=== PATIENT | male | born 1980 | race Caucasian/White ===

== ENCOUNTER 2024-06-24 14:15 | Outpatient (OUT) | payer BC, SELFPAY ==
[2024-06-24 15:04] LABS: INR 1.08; Partial Thromboplastin Time 30.7 sec (22.3-36.2); Prothrombin Time 11.4 sec (9.0-11.6)
== END 2024-06-24 14:16 | disposition home or self-care (01) ==
LOC: PST 14:21
PROVIDERS: Visit Provider Urology
DX: Z01.812 Encounter for preprocedural laboratory examination (principal); N20.0 Calculus of kidney; R31.9 Hematuria, unspecified
CPT/HCPCS: 85610; 85730

== ENCOUNTER 2024-07-15 07:19 | Day surgery (SDC) | payer BC, SELFPAY ==
[2024-06-24 14:43] VITALS: BP 140/85; PULSE 93; TEMP 36.3; O2SAT 96; BMI 44.6
[2024-07-15] VITALS (9 sets, daily range): BP systolic 131–170; BP diastolic 75–96; PULSE 69–84; TEMP 36.3–36.8; O2SAT 92–97; BMI 44.9
--- OUTSIDE RECORDS SUMMARY | 2024-07-15 07:22 | XMS_ITS | CCD ---
Author Organization [facility] Care Team Providers Care Post Anesthesia Room Nurse Name Role Phone Greg Farrell Unavailable NO FAMILY, PHYSICIAN Primary Care Provider Unava ilable Umu Sethi APRN Emergency Provider [phone] Joe Jordan MD Attending Provider CALIXTO ECHEVERRIA Primary Care Physician Joe JORDAN Attending Unavailable Joe JORDAN Attending Unavailable Umu Sethi Admitting Unavailable NO FAMILY, PHYSICIAN Primary Care Unavailable Umu Sethi Attending Unavailable Joe Jordan Attending Unavailable Joe Jordan Admitting Unavailable NO FAMILY, PHYSICIAN Primary Care Unavailable Allergies Allergy Classification Reported Allergen(s) Allergy Type Date of Onset Reaction(s) Facility (1 source) No Known Medication Allergies; Translations: [No Known Medication Allergies] Propensity to adverse reactions (disorder) [facility] Repository Medications Current Medications Medication Drug Class(es) Dates Sig (Normalized) Sig (Original) Acetaminophen / HYDROcodone (3 sources) Opioid Agonist Start: 06-21-2024 [place] 5/325 Tab See Instructions, Refill(s) 0, Oral q6hr Start Date: 06/21/24 Status: Ordered Start: 06-14-2024 take 1 tablet by pool th every four to six hours as needed for pain Hydrocodone-Acetaminophen 5-325 mg table t Active 1 TAB PO EVERY 4-6 HOURS as needed for pain 10 3 June 14, 2024 amoxicillin 875 mg / clavulanate 125 mg oral tablet (1 source) Penicillin-class Antibacterial Start: 05-20-2022 take 1 tablet by mouth every twelve hours Amoxicillin-Pot Clavulanate 875-125 MG 1 tablet Orally every 12 hrs for 10 day(s) May, Active bifidobacterium infantis 4 mg oral capsule (4 sources) Start: 06-21-2024 take 4 mg by mouth once daily Align 4 mg, Oral, Daily, Refills(s) 0 Start Date: 06/21/24 Status: Ordered Start: 06-14-2024 take 1 capsule by mo [facility] once daily Bifidobacterium Infantis (Align) 4 mg capsule Active 4 MG PO Daily June 14, 2024 12:00am Zyrtec (4 sources) Histamine-1 Receptor Antagonist Start: 06-21-2024 Zyrtec Daily, Refill s(s) 0 Start Date: 06/21/24 Status: Ordered Start: 06-14-2024 take 1 tablet by pool once daily Cetirizine 5 mg tablet Active 5 MG PO Daily June 14, 2024 12:00am Flonase (4 sources) Corticosteroid Start: 06-21-2024 Flonase mcg, D aily, Refill(s) 0 Start Date: 06/21/24 Status: Ordered Start: 06-14-2024 take 1 spray(s) nasa l route once daily Fluticasone Propionate 50 mcg/actuation spray,suspension Active 1 SPRAY INTRANASAL Daily June 14, 2024 12:00am administer into each nostril ondansetron 4 mg disintegrating oral tablet (2 sources) Serotonin-3 Receptor Antagonist Start: 06-14-2024 take 1 tablet by mouth every eight hours Ondansetron 4 mg tablet,disintegrating Active 4 MG PO Every 8 hours 12 June 14, 2024 12:00am predniSONE 20 mg oral tablet (1 source) Start: 05-20-2022 take 1 tablet by mouth every twelve hours predniSONE 20 MG 1 tablet Orally twice a day for 5 days May, Active tamsulosin hydrochloride 0.4 mg oral capsule (4 sources) alpha-Adrenergic Addis Start: 06-21-2024 take 1 capsule by mouth once daily tamsulosin 0.4 mg Cap 0.4 mg = 1 cap(s), Oral, Daily, # 30 cap(s), Refills(s) 1, Pharmacy: [id number], 198, cm, 06/21/24 9:15:00 EST, Height/Length Dosing, 172.5, kg, 06/21/24 9:15:00 EST, Weight Dosing Start Date: 06/21/24 Status: Ordered Start: 06-21-2024 take 4 mg by mouth once daily tamsulosin 4 mg, Oral, Daily, Refills(s) 0 Start Date: 06/21/24 Status: Ordered Start: 06-14-2024 take 1 capsule by [facility] once daily Tamsulosin (Flomax) 0.4 mg capsule Active 0.4 MG PO Daily June 14, 2024 12:00am Completed/Discontinued Medications Medication Drug Class(es) Dates Sig (Normalized) Sig (Original) azithromycin 250 mg oral tablet (3 sources) Macrolide Antimicrobial Start: 08-29-2020 End: 06-14-2024 Azithromycin (Zithromax Z-Will) 250 mg tablet Discontinued 250 MG PO as directed on dose pack August 28, 2020 11:00pm June 14, 2024 1:15pm take 2 tablets (500 mg) today (day 1), then 1 tablet (250 mg) for 4 days (days 2-5) benzonatate 100 mg oral capsule (3 sources) Non-narcotic Antitussive Start: 08-29-2020 End: 06-14-2024 take 2 capsules by mouth three times daily as needed for cough Benzonatate (Tessalon Perles) 100 mg capsule Discontinued 200 MG PO Three times daily as needed for cough August 28, 2020 11:00pm June 14, 2024 1:16pm dexamethasone 6 mg oral tablet (3 sources) Corticosteroid Start: 08-29-2020 End: 06-14-2024 take 1 tablet by mouth once daily Dexamethasone 6 mg tablet Discontinued 6 MG PO Daily August 28, 2020 11:00pm June 14, 2024 1:16pm Problems Problem Classification Problem Date Documented Date Episodic/Chronic Abdominal pain (1 source) Unspecified abdominal pain; Translations: [Unspecified abdominal pain] Onset: 06-14-2024 Episodic Asthma (1 source) Asthma 06-21-2024 Chronic Calculus of urinary tract (5 sources) Obstruction of pelviureteric junction; Translations: [Calculus of ureter] Onset: 06-19-2024 06-14-2024 Episodic Esophageal disorders (1 source) Gastroesophageal reflux disease without esophagitis; Translations: [Gastro-esophageal reflux disease without esophagitis] Chronic Genitourinary symptoms and ill-defined conditions (3 sources) Hematuria, unspecified; Translations: [Hematuria, unspecified] 06-14-2024 Episodic Other upper respiratory infections (1 source) Acute pansinusitis, unspecified Episodic Pneumonia (except that caused by tuberculosis or sexually transmitted disease) (3 sources) Pneumonia; Translations: [Pneumonia, unspecified organism] 05-21-2023 Episodic Comment on above: Problem List clean-u p per request of Phys. EHR Cmte Skin and subcutaneous tissue infections (2 sources) Cellulitis of lower limb; Translations: [Cellulitis of left lower limb] 06-21-2024 Episodic Spondylosis; intervertebral disc disorders; other back problems (3 sources) Backache; Translations: [Dorsalgia, unspecified] 06-14-2024 Episodic Viral infection (1 source) Disease caused by 2019-nCoV 06-21-2024 Results Test Name Value Interpretation Reference Range Facility Ambulatory Visit Summaryon 0 06-21-2024 Ambulatory Visit Summary Ambulatory Visi t Summary FAUSTO LAUREANO :1980 Visit Date:06/21/2024 Ambulatory Visit Instructions Your Diagnosis Kidney stone Your Care Team Attending Physician - Joe JORDAN MD Primary Care Physician - CALIXTO ECHEVERRIA DO This Is Your Medications List tamsulosin (tamsulosin 0.4 mg Cap) Contact prescribing physician if questions or concerns acetaminophen-hydroc odone ([place] 5/325 Tab) bifidobacterium infantis (Align) cetirizine (Zyrtec) fluticasone nasal (Flonase) tamsulosin Procedures Performed Extraction of wisdom tooth (10/06/2016). Discharge Vitals Temperature (Temporal Artery) 37 ???C Heart Rate (Peripheral) 80 Respiratory Rate 18 Blood Pressure 133/84 Height 198 cm Height 78 in Weight 172.5 kg Weight 380.297 lb BMI 44 What to do next You Need to Schedule the Following Appointments Follow Up with MARTINE BYRNES, Joe Harman, URL When: Where: [facility] [address] , [place] [address] [phone] Medications What How Much When Why Instructions New tamsulosin (tamsulosin 0.4 mg Cap) 1 Capsules By Mouth Every day Kidney stone Refills: 1 Pickup at [facility] Unchanged acetaminophen-hydroc odone ([place] 5/ 325 Tab) See instructions Oral q6hr Contact prescribing physician if questions or concerns Unchanged bifidobacterium infantis (Align) 4 Milligram By Mouth Every day Contact prescribing physician if questions or concerns Unchanged cetirizine (Zyrtec) Every day Contact prescribing physician if questions or concerns Unchanged fluticasone nasal (Flonase) Every day Contact prescribing physician if questions or concerns Unchanged tamsulosin 4 Milligram By Mouth Every day Contact prescribing physician if questions or concerns Pharmacy Information [id number]: [id number] [place], [place] [phone] Medications and Immunizations Administered Given SARS-CoV-2 (COVID-19) mRNA-1273 vaccine, Allergies No Known Medication Allergies Problems Ongoing - Any problem that you are currently receiving treatment for. Asthma Cellulitis COVID-19 Kidney stone Patient Survey You may receive a survey via text or e-mail asking about your office visit. Please share your experience with us by completing your survey. We appreciate your feedback and thank you for choosing us for your care. Education Materials Laser Therapy for Kidney Stones Laser therapy for kidney stones is a procedure to break up rock-like masses that form inside the kidneys (kidney stones). It is done using a device that beams a strong light (laser) on the kidney stones. This breaks the stones up into small pieces. These small pieces may leave your body when you pee (urinate) or may be taken out during the procedure. You may need laser therapy if you have kidney stones that are painful or that are stopping you from being able to pee. Tell a health care provider about: ??? Any allergies you have. ??? All medicines you are taking, including vitamins, herbs, eye drops, creams, and hyli-lys-jlujbni medicines. ??? Any problems you or family members have had with anesthesia. ??? Any bleeding problems you have. ??? Any surgeries you have had. ??? Any medical conditions you have. ??? Whether you are or may be . What are the risks? Your health care provider will talk with you about risks. These may include: ??? Infection. ??? Bleeding. ??? Allergic reactions to medicines. ??? Damage to: ? The part of your body that drains pee (urine) from the bladder (urethra). ? The bladder. ? The tube that connects the bladder to the kidneys (ureter). ??? Urinary tract infection (UTI). ??? Urethral stricture. This is when the urethra is narrowed by scarring. ??? Trouble peeing. ??? Blockage of the kidney. This may be caused by a piece of kidney stone. What happens before the procedure? When to stop eating and drinking Follow instructions from your provider about what you may eat and drink. These may include: ??? 8 hours before the procedure ? Stop eating most foods. Do not eat meat, fried foods, or fatty foods. ? Eat only light foods, such as toast or crackers. ? All liquids are okay except energy drinks and alcohol. ??? 6 hours before the procedure ? Stop eating. ? Drink only clear liquids, such as water, clear fruit juice, black coffee, plain tea, and sports drinks. ? Do not drink energy drinks or alcohol. ??? 2 hours before the procedure ? Stop drinking all liquids. ? You may be allowed to take medicines with small sips of water. ??? If you do not follow your provider's instructions, your procedure may be delayed or canceled. Medicines ??? Ask your provider about: ? Changing or stopping your regular medicines. These include any diabetes medicines or blood thinners you take. ? Taking medicines such as (more content not included)... Normal [facility] Urology Office/Clinic Noteon 06-21-2024 Urology Office/Clinic Note Urology Office/Clinic Note Chief Complaint kidney stone HPI Staff 43yr old male pt here for ER f/u. Pt [place] [facility] [place]24 for left flank pain. CT showed 4mm obstructing calculus left UPJ. Given Flomax to take daily. KUB order faxed to [facility] 06/15/24 Dysuria: denies Incomplete bladder emptying: denies Hematuria: denies Frequency: denies Urgency: denies Nocturia: 2x Stream: denies straining or intermittency Leaking: denies Post void dripping: yes Wearing pads/ Depends: denies Urge incontinence: denies Stress incontinence: denies Incontinence without Sensory Awareness: denies Abdominal pain: denies any current pain Flank pain: denies any current pain Sexual complaints: denies History of Present Illness Tests reviewed: reviewed UA, ER notes & labs & imaging, KUB I have reviewed the previous health record information and history for this patient from Dr. Jordan. I have reviewed and verified the staff HPI to be accurate for this encounter. Review of Systems PHQ Score Initial Depression Screen Score: 0 SCORE ROS - Provider Constitutional: denies weight loss, denies hot flashes. Eyes: denies eye problems. Gastrointestinal: denies nausea, denies vomiting. Cardiovascular: denies chest pain or angina. Integumentary: no dryness Musculoskeletal: denies musculoskeletal symptoms. ENMT: denies otolaryngeal symptoms. Respiratory: no shortness of breath. Heme/Lymph: denies easy bleeding tendency, denies easy bruising tendency. Psychiatric: no confusion, no anxiety. Genitourinary: See HPI. Physical Exam Vitals & Measurements T: 37 ???C(Temporal Artery) HR: 80(Peripheral) RR: 18 BP: 133/84 HT: 78 in HT: 198 cm WT: 172.5 kg WT: 380.297 lb BMI: 44 General Appearance: alert, no distress, well nourished, well developed male. Assessment/Plan Fausto is a 43 yo male new pt here for f/u to ER visit due to left UPJ stone. IPSS 2. JACQUELIN 5. 1. Kidney stone (N20.0: Calculus of kidney) [facility] ER visit 06/14/24 due to left flank pain and hematuria. Given Toradol, Zofran, [place], and Flomax. BUN 19, Cr 1.36, eGFR >60. CT AP wo con 06/14/24 [facility] - 4mm obstructing L UPJ stone. No other stones noted. KUB 06/19/24 FR - 6mm L kidney stone grossly unchanged in position. No R calculus. First stone episode. UA today shows trace-intact blood. Denies gross hematuria. Has not had any pain since ER visit where he had N&V with flank pain. Reviewed imaging results. Advised pt stone may be ball-valving. Currently appears to be in the kidney per recent x-ray and given pt not in pain. Discussed management options including continued surveillance with imaging in 6 to 12 months or expectant management vs intervention including extracorporeal shockwave lithotripsy vs ureteroscopy with laser lithotripsy/stone basket extraction possible stent. Risks/benefits of each were discussed. Pt is not interested in ureteroscopy. Prefers to have stone treated via ESWL. -Cont Tamsulosin qd. Refills sent to [facility]. -Strain urine, call if stone passes -Take Tylenol or ibuprofen as needed for pain -Will schedule Left ESWL. The procedure risks, benefits, details and treatment alternatives have been discussed with the patient. These include blood in the urine, infection, bleeding around the kidney, kidney bruising, inability to break up the stone, need for blood transfusion, blockage from stone fragments, and need for additional procedures, among others. Full informed consent has been obtained. Will order General anesthesia. Follow-up With When Contact Information MARTINE BYRNES, Joe Harman, L [facility] [address], [place] [address] [phone] Additional Instructions: sched L ESWL Patient Education Laser Therapy for Kidney Stones Kidney Stones, [id number] IQian, personally scribed for Dr. Jordan on 06/21/2024 09:57:18. . Documentation recorded by the scribe, Qian Fallon, accurately reflects the services(s) I performed and decisions made by me. Authenticated by Dr. Jordan on 06/21/2024 10:00:06. Problem List/Past Medical History Ongoing Asthma Cellulitis COVID-19 Kidney stone Historical No qualifying data Procedure/Surgical History Extraction of wisdom tooth (10/06/2016). Medications Align, 4 mg, Oral, Daily Flonase, Daily [place] 5/325 Tab, See Instructions, Not taking: has not had a need to take it tamsulosin, 4 mg, Oral, Daily Zyrtec, Daily Allergies No Known Medication Allergies Social History Alcohol Current. Liquor. 1-2 times per week., 06/16/2024 Substance Abuse Never., 06/16/2024 Tobacco Never (less than 100 in lifetime) Tobacco Use:. Household tobacco concerns: No., 06/21/2024 Family History Arthritis: Mother. Breast cancer: Mother. Diabetes mellitus type 2: Father. Kidney stone: Mother and Brother. Immunizations Vaccine Date Status SARS-CoV-2 (COVID-19) mRNA-1273 vaccine 04/30/2022 G (more content not included)... Normal [facility] Comment on above: Result Comment: Elec tronically Signed By: MARTINE BYRNES, Joe Harman\.br\Date and Time Signed: 06/21/24 10:00 EST\.br\Electronically Co-Signed By: Qian Fallon\.br\Date and Time Co-Signed: 06/21/24 09:57 EST X-ray reportOrdered By: Eldon Gross on 06-19-2024 Study report [facility] [address] [address] XRay Report Signed Patient: Fausto Laureano MR#: [id number] : 1980 Acct:[id number] Age/Sex: 43 / M ADM Date: 5 Loc: XD Room: Type: REG CLI Attending Dr: Joe Jordan MD Copies to: Joe Jordan MD~ Ordering Provider: Joe Jordan MD Date of Service: 06/19/24 XR/XR KUB: N20.0 KUB: CLINICAL INFORMATION: Follow-up left-sided kidney stone COMPARISON: CT abdomen and pelvis 06/14/2024. FINDINGS: Left-sided kidney stone is grossly unchanged in position measuring 6 mm on today's study. No right-sided calculus. No ureteral carpus. No bowel obstruction or free air. XR/XR KUB IMPRESSION: LEFT NEPHROLITHIASIS GROSSLY UNCHANGED IN POSITION WHEN COMPARED TO THE PRIOR STUDY. Impression dictated by: Ryan Gross Jr., D.O.06/19/2024 9:29 AM Dictation Location: [facility] Transcribed By: [facility] 06/19/24928 Dictated By: Ryan Gross Jr, DO 06/19/24 0928 Signed By: 06/19/24 0929 [facility] XR KUBon 06-19-2024 XR KUB [address] [address] XRay Report Signed Patient: Fausto Laureano MR#: [id number] 43 : 1980 Acct:[id number] Age/Sex: 43 / M ADM Date: 06/19/24 Loc: XD Room: Type: REG CLI Attending Dr: Joe Jordan MD Copies to: Joe Jordan MD Ordering Provider: Joe Jordan MD Date of Service: 06/19/24 XR/XR KUB: N20.0 KUB: CLINICAL INFORMATION: Follow-up left-sided kidney stone COMPARISON: CT abdomen and pelvis 06/14/2024. FINDINGS: Left-sided kidney stone is grossly unchanged in position measuring 6 mm on today's study. No right-sided calculus. No ureteral carpus. No bowel obstruction or free air. XR/XR KUB IMPRESSION: LEFT NEPHROLITHIASIS GROSSLY UNCHANGED IN POSITION WHEN COMPARED TO THE PRIOR STUDY. Impression dictated by: Ryan Gross Jr., D.O.06/19/2024 9:29 AM Dictation Location: [facility] Transcribed By: [facility] 06/19/24928 Dictated By: Ryan Gross Jr, DO 06/19/24927 Signed By: 06/19/24928 Normal [facility] Alanine aminotransferase [En zymatic activity/volume] in Serum or PlasmaOrdered By: Umu Sethi on 06-14-2024 ALT [Catalytic activity/Vol] Alanine aminotransferase [Enzymatic activity/volume] in Serum or Plasma 7-52 [facility] Albumin [Mass/volume] in Ser um or Plasma by Bromocresol green (BCG) dye binding methoOrdered By: Umu Sethi on 06-14-2024 Albumin BCG dye [Mass/Vol] Albumin [Mass/volume] in Serum or Plasma by Bromocresol green (BCG) dye binding metho 3.5-5.7 [facility] Alkaline phosphatase [Enzyma tic activity/volume] in Serum or PlasmaOrdered By: Umu Sethi on 06-14-2024 ALP [Catalytic activity/Vol] Alkaline phosphatase [Enzymatic activity/volume] in Serum or Plasma 34-104 [facility] Aspartate aminotransferase [ Enzymatic activity/volume] in Serum or PlasmaOrdered By: Umu Sethi on 06-14-2024 AST [Catalytic activity/Vol] Aspartate aminotransferase [Enzymatic activity/volume] in Serum or Plasma 13-39 [facility] Basophils Auto (Bld) [#/Vol] Ordered By: Umu Sethi on 06-14-2024 Basophils (Bld) [#/Vol] Automated basoph il count 0.0-0.2 [facility] Basophils/100 WBC Auto (Bld) Ordered By: Umu Sethi on 06-14-2024 Basophils/100 WBC (Bld) Automated basophil % . [facility] Bilirubin.total [Mass/volume ] in Serum or PlasmaOrdered By: Umu Sethi on 06-14-2024 Bilirubin [Mass/Vol] Bilirubin.total [Mass/volume] in Serum or Plasma 0.3-1.[address] [facility] CT abdomen pelvis wo conon 0 06-14-2024 CT abdomen pelvis wo con [facility] [place] [address] [place] [address] CT Scan Report Signed Patient: Fausto Laureano MR#: [id number] 43 : 1980 Acct:[id number] Age/Sex: 43 / M ADM Date: 06/14/24 Loc: ER Room: Type: PRE ER Attending Dr: Copies to: Umu Sethi APRN Ordering Provider: Umu Sethi APRN Date of Service: 06/14/24 CT/CT abdomen pelvis wo con: flank pain/hematuria CT ABDOMEN AND PELVIS WITHOUT INTRAVENOUS CONTRAST: CLINICAL HISTORY: Left low back pain with hematuria COMPARISON: None TECHNIQUE: Spiral images were obtained through the abdomen and pelvis without intravenous contrast. This CT exam was performed using one or more following dose reduction techniques: Automated exposure control, adjustment of the mA and/or kV according to patient size, or use of iterative reconstruction technique. FINDINGS: Lung Bases: [Mild bibasilar atelectasis.] Organs:Suboptimal evaluation due to lack of IV contrast. Liver gallbladder spleen pancreas and adrenal glands appear unremarkable. Kidneys demonstrate a 4 mm obstructing calculus left UPJ. Aorta appears normal in caliber.[ GI: Stomach is grossly unremarkable. Small bowel appears nondilated. Appendix is normal. No acute colonic abnormality is seen.[ Pelvis:[Urinary bladder and prostate gland appear unremarkable.] Peritoneum/Retroperi toneum:No free air or free fluid or lymphadenopathy.[ Abd wall/Bones:Abdominal wall demonstrates no acute findings. Osseous structures demonstrate degenerative change.[ CT/CT abdomen pelvis wo con IMPRESSION: 4 mm obstructing calculus left UPJ. Impression dictated by: Ryan Gross Jr., D.OWillis06/14/2024 3:18 PM Dictation Location: [facility] Transcribed By: MIKE 06/14/24 1518 Dictated By: yRan Gross Jr, DO 06/14/241514 Signed By: 06/14/241517 Normal [facility] Calcium [Mass/volume] in Ser um or PlasmaOrdered By: Umu Setih on 06-14-2024 Calcium [Mass/Vol] Calcium [Mass/volume] in Serum or Plasma 8.6-10.3 [facility] Carbon dioxide, total [Moles /volume] in Serum or PlasmaOrdered By: Umu Sethi on 06-14-2024 CO2 [Moles/Vol] Carbon dioxide, total [Moles/volume] in Serum or Plasma 21.0-31.0 [facility] Chloride [Moles/volume] in S evan or PlasmaOrdered By: Umu Sethi on 06-14-2024 Chloride [Moles/Vol] Chloride [Moles/volume] in Serum or Plasma 98-107 [facility] Complete Blood Count Auto Di ffon 06-14-2024 Basophils (Bld) [#/Vol] 0.1 10*3/uL Normal 0.0-0.2 [facility] Comment on above: Result Comment: PERF ORMED BY: [place] [address] PATHOLOGIST RETAIL LOSS PREVENTION SPECIALIST MOJGAN HOSKINS M.D. Performed By: #### C BC, CMP #### [facility] [address] [place] [address] [place] Basophils/100 WBC (Bld) 0.8 % Normal . [facility] Comment on above: Performed By: #### C BC, CMP #### [facility] [address] Eosinophils (Bld) [#/Vol] 0.2 10*3/uL Normal 0.0-0.45 [facility] Comment on above: Performed By: #### C BC, CMP #### [address] Eosinophils/100 WBC (Bld) 1.6 % Normal . [facility] Comment on above: Performed By: #### C BC, CMP #### [address] Erythrocyte distribution width (RBC) [Ratio] 12.8 % Normal 12.0-14.8 [facility] Comment on above: Performed By: #### C BC, CMP #### [address] Hematocrit (Bld) [Volume fraction] 43.2 % Normal 38.8-50.0 [facility] Comment on above: Performed By: #### C BC, CMP #### [address] Hemoglobin (Bld) [Mass/Vol] 14.9 g/dL Normal 13.0-17.0 [facility] Comment on above: Performed By: #### C BC, CMP #### [address] Lymphocytes (Bld) [#/Vol] 1.8 10*3/uL Normal 1.00-4.8 [facility] Comment on above: Performed By: #### C BC, CMP #### [address] Lymphocytes/100 WBC (Bld) 16.4 % Normal . [facility] Comment on above: Performed By: #### C BC, CMP #### [address] [facility] (RBC) [Entitic mass] 30.8 pg Normal 27.5-35.2 [facility] Comment on above: Performed By: #### C BC, CMP #### [address] MCV (RBC) [Entitic vol] 89.4 fL Normal 83.5-101 [facility] Comment on above: Performed By: #### C BC, CMP #### [address] Mean Corpuscular HGB Conc 34.4 g/dL Normal 32.5-35.6 [facility] Comment on above: Performed By: #### C BC, CMP #### [address] Monocytes (Bld) [#/Vol] 0.7 10*3/uL Normal 0.0-0.8 [facility] Comment on above: Performed By: #### C BC, CMP #### [place] [address] [place] Monocytes/100 WBC (Bld) 18.17 % Normal 0.00-20.00 [facility] Comment on above: Performed By: #### C BC, CMP #### [address] Monocytes/100 WBC (Bld) 5.8 % Normal . [facility] Comment on above: Performed By: #### C BC, CMP #### [place] [address] [place] Neutrophils (Bld) [#/Vol] 8.4 10*3/uL High 1.8-7.7 [facility] Comment on above: Performed By: #### C BC, CMP #### [address] Neutrophils/100 WBC (Bld) 75.4 % Normal . [facility] Comment on above: Performed By: #### C BC, CMP #### [address] NRBC% 0.0 /100{WBC} Normal 0-0.5 [facility] Comment on above: Performed By: #### C BC, CMP #### [address] Platelet mean volume (Bld) [Entitic vol] 7.8 fL Normal 6.6-10.1 [facility] Comment on above: Performed By: #### C BC, CMP #### [place] [id number] [place] Platelets (Bld) [#/Vol] 287 10*3/uL Normal 150-450 [facility] Comment on above: Performed By: #### C BC, CMP #### [address] RBC (Bld) [#/Vol] 4.84 10*6/uL Normal 3.90-5.60 [facility] Comment on above: Performed By: #### C BC, CMP #### [address] WBC (Bld) [#/Vol] 11.2 10*3/uL High 4.1-10.5 [facility] Comment on above: Performed By: #### C BC, CMP #### [address] Comprehensive Metabolic Pane maurilio 06-14-2024 Albumin [Mass/Vol] 4.7 g/dL Normal 3.5-5.7 [facility] Comment on above: Performed By: #### C BC, CMP #### [address] Albumin/Globulin [Mass ratio] 1.8 {ratio} Normal [facility] Comment on above: Performed By: #### C BC, CMP #### [address] ALP [Catalytic activity/Vol] 90 U/L Normal 34-104 [facility] Comment on above: Performed By: #### C BC, CMP #### [address] ALT [Catalytic activity/Vol] 18 U/L Normal 7-52 [facility] Comment on above: Performed By: #### C BC, CMP #### [address] Anion gap [Moles/Vol] 17.0 mmol/L High 6.0-15.0 [facility] Comment on above: Performed By: #### C BC, CMP #### [address] [place] [address] [place] AST [Catalytic activity/Vol] 16 U/L Normal 13-39 [facility] Comment on above: Performed By: #### C BC, CMP #### [address] Bilirubin [Mass/Vol] 0.3 mg/dL Normal 0.3-1.0 [facility] Comment on above: Performed By: #### C BC, CMP #### [address] Calcium [Mass/Vol] 9.5 mg/dL Normal 8.6-10.3 [facility] Comment on above: Performed By: #### C ROB, CMP #### [address] Chloride [Moles/Vol] 102 mmol/L Normal 98-107 [facility] Comment on above: Performed By: #### C BC, CMP #### [address] CO2 [Moles/Vol] 28.1 mmol/L Normal 21.0-31.0 [facility] Comment on above: Performed By: #### C ROB, CMP #### [address] Creatinine [Mass/Vol] 1.36 mg/dL High 0.70-1.30 [facility] Comment on above: Performed By: #### C BC, CMP #### [place] [address] [place] Creatinine Clr Calc Pharmacy 128.36 Normal [facility] Comment on above: Result Comment: PERF ORMED BY: [place] [address] PATHOLOGIST RETAIL LOSS PREVENTION SPECIALIST MOJGAN HOSKINS M.D. Performed By: #### C BC, CMP #### [address] GFR/1.73 sq M.predicted MDRD (S/P/Bld) [Vol rate/Area] mL/min/{1.73_m2} Normal [facility] Comment on above: Performed By: #### C BC, CMP #### [facility] [address] [place] [address] [place] Globulin (S) [Mass/Vol] 2.6 g/dL Normal T he [facility] Comment on above: Performed By: #### C BC, CMP #### [facility] [address] [place] [address] [place] Glucose [Mass/Vol] 118 mg/dL High 70-100 [facility] Comment on above: Result Comment: [facility] Glucose Reference Range is dependent on time and content of last meal. Glucose of more than 200 mg/dL in a nonstressed, ambulatory subject supports the diagnosis of Diabetes Mellitus. ADA recommended reference range Performed By: #### C BC, CMP #### [facility] [address] Potassium [Moles/Vol] 4.1 mmol/L Normal 3.5-5.1 [facility] Comment on above: Performed By: #### C BC, CMP #### [facility] [address] Protein [Mass/Vol] 7.3 g/dL Normal 6.4-8.9 [facility] Comment on above: Performed By: #### C BC, CMP #### [address] Sodium [Moles/Vol] 143 mmol/L Normal 136-145 [facility] Comment on above: Performed By: #### C BC, CMP #### [facility] [address] [place] [id number] [place] Urea nitrogen [Mass/Vol] 19 mg/dL Normal 7-25 [facility] Comment on above: Performed By: #### C BC, CMP #### [facility] [address] [place] [id number] [place] Creatinine [Mass/volume] in Serum or PlasmaOrdered By: Umu Sethi on 06-14-2024 Creatinine [Mass/Vol] Creatinine [Mass/volume] in Serum or Plasma High 0.70-1.30 [facility] Eosinophils Auto (Bld) [#/Vo l]Ordered By: Umu Sethi on 06-14-2024 Eosinophils (Bld) [#/Vol] Automated eosinophil count 0.0-0.45 [facility] Eosinophils/100 WBC Auto (Bl d)Ordered By: Umu Sethi on 06-14-2024 Eosinophils/100 WBC (Bld) Automated eosinophil % . [facility] Erythrocyte distribution wid th Auto (RBC) [Ratio]Ordered By: Umu Sethi on 06-14-2024 Erythrocyte distribution width (RBC) [Ratio] Erythrocyte distribution width [Ratio] by Automated count 12.0-14.8 [facility] Globulin Calc (S) [Mass/Vol] Ordered By: Umu Sethi on 06-14-2024 Globulin (S) [Mass/Vol] Serum globulin measurement by calculation (mass/volume) [facility] Glucose [Mass/volume] in Ser um or PlasmaOrdered By: Umujessica Sethi on 06-14-2024 Glucose [Mass/Vol] Glucose [Mass/volume] in Serum or Plasma High 70-100 [facility] Comment on above: ADA recommended refe rence rangeRandom Glucose Reference Range is dependent on time and content of last meal. Glucose of more than 200 mg/dL in a nonstressed, ambulatory subject supports the diagnosis of Diabetes Mellitus. Hematocrit Auto (Bld) [Volum e fraction]Ordered By: Umu Sethi on 06-14-2024 Hematocrit (Bld) [Volume fraction] Hematocrit [Volume Fraction] of Blood by Automated count 38.8-50.0 [facility] Hemoglobin [Mass/volume] in BloodOrdered By: Umu Sethi on 06-14-2024 Hemoglobin (Bld) [Mass/Vol] Hemoglobin [Mass/volume] in Blood 13.0-17.0 [facility] Laboratory - Chemistry and C hemistry - challengeon 06-14-2024 Bilirubin Ql (U) Negative [facility] Glucose (U) [Mass/Vol] Negative [facility] Ketones Ql (U) Negative [facility] pH (U) 5.5 [pH] [facility] Specific gravity (U) [Rel density] 1.030 [facility] Urobilinogen (U) [Mass/Vol] 0.2 mg/dL [facility] Laboratory - Specimen inform ationon 06-14-2024 Appearance (U) clear [facility] Color (U) yellow [facility] Laboratory - Urinalysison Leukocyte esterase Test strip Ql (U) Negative [facility] Nitrite Ql (U) Negative [facility] Protein Ql (U) Negative [facility] Leukocytes [#/volume] correc adán for nucleated erythrocytes in Blood by Automated counOrdered By: Umu Sethi on 06-14-2024 WBC corrected for nucl RBC Auto (Bld) [#/Vol] Leukocytes [#/volume] corrected for nucleated erythrocytes in Blood by Automated coun High 4.1-10.5 [facility] Lymphocytes Auto (Bld) [#/Vo l]Ordered By: Umu Sethi on 06-14-2024 Lymphocytes (Bld) [#/Vol] Lymphocytes [#/volume] in Blood by Automated count 1.00-4.8 [facility] Lymphocytes/100 WBC Auto (Bl d)Ordered By: Umu Sethi on 06-14-2024 Lymphocytes/100 WBC (Bld) Lymphocytes/100 leukocytes in Blood by Automated count . [facility] MCH Auto (RBC) [Entitic mass ]Ordered By: Umu Sethi on 06-14-2024 MCH (RBC) [Entitic mass] MCH [Entitic ma ss] by Automated count 27.5-35.2 [facility] MCHC Auto (RBC) [Mass/Vol]Or dered By: Umu Sethi on 06-14-2024 MCHC (RBC) [Mass/Vol] MCHC [Mass/volume] by Automated count 32.5-35.6 [facility] MCV Auto (RBC) [Entitic vol] Ordered By: Umu Sethi on 06-14-2024 MCV (RBC) [Entitic vol] MCV [Entitic vol ume] by Automated count 83.5-101 [facility] Monocyte distribution width [Entitic volume] in Blood by AutomatedOrdered By: Umu Sethi on 06-14-2024 Monocyte distribution width Auto (Bld) [Entitic vol] Monocyte distribution width [Entitic volume] in Blood by Automated 0.00-20.00 [facility] Monocytes Auto (Bld) [#/Vol] Ordered By: Umu Sethi on 06-14-2024 Monocytes (Bld) [#/Vol] Automated blood monocyte count 0.0-0.8 [facility] Monocytes/100 WBC Auto (Bld) Ordered By: Umu Sethi on 06-14-2024 Monocytes/100 WBC (Bld) Automated monocyte % . [facility] Neutrophils Auto (Bld) [#/Vo l]Ordered By: Umu Sethi on 06-14-2024 Neutrophils (Bld) [#/Vol] Neutrophils [#/volume] in Blood by Automated count High 1.8-7.7 [facility] Neutrophils/100 WBC Auto (Bl d)Ordered By: Umu Sethi on 06-14-2024 Neutrophils/100 WBC (Bld) Automated neutrophil % . [facility] No Panel InformationOrdered By: Umu Sethi on 06-14-2024 Estimated GFR (CKD-EPI) > 60.0 mL/Min [facility] Creatinine Clearance (Chem 128.36 [facility] No Panel Informationon 06-14 Urine Occult Blood small [facility] Nucleated erythrocytes [Pres ence] in Blood by Automated countOrdered By: Umu Sethi on 06-14-2024 Nucleated RBC Auto Ql (Bld) Nucleated erythrocytes [Presence] in Blood by Automated count 0-0.5 [facility] Platelet mean volume Auto (B ld) [Entitic vol]Ordered By: Umu Sethi on 06-14-2024 Platelet mean volume (Bld) [Entitic vol] Platelet mean volume [Entitic volume] in Blood by Automated count 6.6-10.1 [facility] Platelets Auto (Bld) [#/Vol] Ordered By: Umu Sethi on 06-14-2024 Platelets (Bld) [#/Vol] Platelets [#/vol ume] in Blood by Automated count 150-450 [facility] Potassium [Moles/volume] in Serum or PlasmaOrdered By: Umu Sethi on 06-14-2024 Potassium [Moles/Vol] Potassium [Moles/volume] in Serum or Plasma 3.5-5.1 [facility] Protein [Mass/volume] in Ser um or PlasmaOrdered By: Umu Sethi on 06-14-2024 Protein [Mass/Vol] Protein [Mass/volume] in Serum or Plasma 6.4-8.9 [facility] RBC Auto (Bld) [#/Vol]Ordere d By: Umu Sethi on 06-14-2024 RBC (Bld) [#/Vol] Erythrocytes [#/volume] in Blood by Automated count 3.90-5.60 [facility] Serum or plasma albumin/glob ulin mass ratioOrdered By: Umu Sethi on 06-14-2024 Albumin/Globulin [Mass ratio] Serum or plasma albumin/globulin mass ratio [facility] Serum or plasma anion gap de terminationOrdered By: Umu Sethi on 06-14-2024 Anion gap [Moles/Vol] Serum or plasma anion gap determination High 6.0-15.0 [facility] Sodium [Moles/volume] in Ser um or PlasmaOrdered By: Umu Sethi on 06-14-2024 Sodium [Moles/Vol] Sodium [Moles/volume] in Serum or Plasma 136-145 [facility] Urea nitrogen [Mass/volume] in Serum or PlasmaOrdered By: Umu Sethi on 06-14-2024 Urea nitrogen [Mass/Vol] Urea nitrogen [Mass/volume] in Serum or Plasma 7-25 [facility] WBC Auto (Bld) [#/Vol]Ordere d By: Umu Sethi on 06-14-2024 WBC (Bld) [#/Vol] Leukocytes [#/volume] in Blood by Automated count High 4.1-10.5 [facility] Vital Signs Date Time Vital Sign Value Performing Clinician Facility 06-21-2024 09:10-0500 Blood Pressure Location Joe JORDAN [facility] 06-21-2024 09:10-0500 Body temperature 98.6 [degF] Joe JORDAN [facility] 06-21-2024 09:10-0500 Diastolic blood pressure 84 mm[Hg] Joe JORDAN [facility] 06-21-2024 09:10-0500 Heart rate 80 /min Joeronald JORDAN [facility] 06-21-2024 09:10-0500 Respiratory rate 18 /min Joeronald JORDAN [facility] 06-21-2024 09:10-0500 Systolic blood pressure 133 mm[Hg] Joe JORDAN [facility] 06-14-2024 15:50-0500 Diastolic blood pressure 78 mm[Hg] PHYSICIAN NO [facility] 06-14-2024 15:50-0500 Heart rate 85 /min PHYSICIAN NO [facility] 06-14-2024 15:50-0500 Respiratory rate 18 /min PHYSICIAN NO [facility] 06-14-2024 15:50-0500 SaO2% (BldA) [Mass fraction] 97 % PHYSICIAN NO [facility] 06-14-2024 15:50-0500 Systolic blood pressure 147 mm[Hg] PHYSICIAN NO [facility] 06-14-2024 14:34-0500 Body height 198.12 cm PHYSICIAN NO [facility] 06-14-2024 14:34-0500 Body temperature 97.9 [degF] PHYSICIAN NO [facility] 06-14-2024 14:34-0500 Body weight 180.3 kg PHYSICIAN NO [facility] 06-14-2024 13:14-0500 Body height 198.12 cm [facility] 06-14-2024 13:14-0500 Body mass index (BMI) [Ratio] 44.1 kg/m2 [facility] 06-14-2024 13:14-0500 Body temperature 98.2 [degF] [facility] 06-14-2024 13:14-0500 Body weight 173.27 kg [facility] 06-14-2024 13:14-0500 Diastolic blood pressure 87 mm[Hg] [facility] 06-14-2024 13:14-0500 Heart rate 88 /min [facility] 06-14-2024 13:14-0500 SaO2% (BldA) [Mass fraction] 97 % [facility] 06-14-2024 13:14-0500 Systolic blood pressure 152 mm[Hg] [facility] 05-20-2022 11:50-0500 Body height Greg Farrell Other [employer] Other 05-20-2022 11:50-0500 Body mass index (BMI) [Ratio] 47.43 kg/m2 Greg Farrell Other [employer] Other 05-20-2022 11:50-0500 Body temperature 98.5 [degF] Greg Farrell Other [employer] Other 05-20-2022 11:50-0500 Body weight 181.44 kg Greg Farrell Other [employer] Other 05-20-2022 11:50-0500 Respiratory rate 18 /min Greg Farrell Other [employer] Other 05-20-2022 11:50-0500 SaO2% (BldA) [Mass fraction] 96 % Greg Farrell Other [employer] Other Encounters Encounter Date Encounter Type Care Provider Facility Start: 07-15-2024 ambulatory Joe Hammer ty:[id number] Start: 06-21-2024 End: 06-21-2024 ambulatory Joe JORDAN Facility:[facility] Start: 06-21-2024 End: 06-21-2024 Patient encounter procedure Joe JORDAN [facility] [place] Start: 06-19-2024 End: 06-19-2024 Patient encounter procedure PHYSICIAN NO [facility] [place] Work Phone: Start: 06-19-2024 End: 06-19-2024 ambulatory PHYSICIAN NO [facility] Work Phone: Start: 06-15-2024 ambulatory Joe JORDAN Facility :[facility] [place] Start: 06-14-2024 End: 06-14-2024 Emergency department patient visit PHYSICIAN NO [facility] Work Phone: Start: 06-14-2024 End: 06-14-2024 ambulatory [facility] Work Phone: Start: 06-14-2024 End: 06-14-2024 Patient encounter procedure [facility] Work Phone: Start: 05-20-2022 End: 05-20-2022 ambulatory Greg Farrell Other [employer] Other Start: 05-20-2022 Office outpatient visit 15 minutes Greg Farrell [facility] [address] Procedures Date Procedure Procedure Detail Performing Clinician Start: 06-19-2024 Supine abdominal X-ray PHYSICIAN NO FAMILY Start: 06-14-2024 CT of abdomen and pe lvis without contrast PHYSICIAN NO FAMILY Start: 10-06-2016 Extraction of wisdom tooth Joe JORDAN Plan of Treatment Date Care Activity Detail Author Patient Education Kidney stones in adults [facility] Work Phone: Patient referral [facility] Work Phone: Immunizations Immunization Date Immunization Notes Care Provider Sarah conway 04-30-2022 SARS-CoV-2 (COVID-19 ) [id number] vaccine Joe JORDAN [facility] Payers Date Payer Category Payer Self-pay 2024 Unknown [id number] 1980 Unknown [id number] Blue Cross Blue Shield [id number] Unknown [id number] Unknown [id number] Unknown [id number] Social History Date Type Detail Facility Unknown if ever smoked [employer] Other Sex Assigned At [facility] Start: 06-14-2024 End: 06-21-2024 Tobacco smoking status NHIS Never smoked tobacco (finding) [facility] Start: 06-14-2024 End: 06-20-2024 Sex Male (finding) [facility] Start: 1980 Sex Assigned At Male [facility] Functional Status Date Assessment Result Facility 06-21-2024 Functional Status N/A [facility] Discharge instructions 06-21-2024 Note Date & Type Note Facility 06-21-2024 Hospital Discharg e instructions Patient Education 06/21/2024 09:54:39 Laser Therapy for Kidney Stones Laser Therapy for Kidney Stones Laser therapy for kidney stones is a procedure to break up rock-like masses that form inside the kidneys (kidney stones). It is done using a device that beams a strong light (laser) on the kidney stones. This breaks the stones up into small pieces. These small pieces may leave your body when you pee (urinate) or may be taken out during the procedure. You may need laser therapy if you have kidney stones that are painful or that are stopping you from being able to pee. Tell a health care provider about: Any allergies you have. All medicines you are taking, including vitamins, herbs, eye drops, creams, and mgdl-adh-lnpdikb medicines. Any problems you or family members have had with anesthesia. Any bleeding problems you have. Any surgeries you have had. Any medical conditions you have. Whether you are or may be . What are the risks? Your health care provider will talk with you about risks. These may include: Infection. Bleeding. Allergic reactions to medicines. Damage to: ?The part of your body that drains pee (urine) from the bladder (urethra). ?The bladder. ?The tube that connects the bladder to the kidneys (ureter). Urinary tract infection (UTI). Urethral stricture. This is when the urethra is narrowed by scarring. Trouble peeing. Blockage of the kidney. This may be caused by a piece of kidney stone. What happens before the procedure? When to stop eating and drinking Follow instructions from your provider about what you may eat and drink. These may include: 8 hours before the procedure ?Stop eating most foods. Do not eat meat, fried foods, or fatty foods. ?Eat only light foods, such as toast or crackers. ?All liquids are okay except energy drinks and alcohol. 6 hours before the procedure ?Stop eating. ?Drink only clear liquids, such as water, clear fruit juice, black coffee, plain tea, and sports drinks. ?Do not drink energy drinks or alcohol. 2 hours before the procedure ?Stop drinking all liquids. ?You may be allowed to take medicines with small sips of water. If you do not follow your provider's instructions, your procedure may be delayed or canceled. Medicines Ask your provider about: ?Changing or stopping your regular medicines. These include any diabetes medicines or blood thinners you take. ?Taking medicines such as aspirin and ibuprofen. These medicines can thin your blood. Do not take them unless your provider tells you to. ?Taking uzwk-wyn-jbskblc medicines, vitamins, herbs, and supplements. Tests You may have a physical exam before the procedure. You may also have tests done. These may include: ?Imaging tests. ?Blood or pee tests. Surgery safety Ask your provider: ?How your surgery site will be marked. ?What steps will be taken to help prevent infection. These steps may include: ?Removing hair at the surgery site. ?Washing skin with a soap that kills germs. ?Taking antibiotics. General instructions Do not use any products that contain nicotine or tobacco for at least 4 weeks before the procedure. These products include cigarettes, chewing tobacco, and vaping devices, such as e-cigarettes. If you need help quitting, ask your provider. If you will be going home right after the procedure, plan to have a responsible adult: ?Take you home from the hospital or clinic. You will not be allowed to drive. ?Care for you for the time you are told. What happens during the procedure? An IV will be inserted into one of your veins. You will be given: ?A sedative. This helps you relax. ?Anesthesia. This keeps you from feeling pain. It will make you fall asleep for surgery. A tool with a camera on the end (ureteroscope) will be put into your urethra. It will be moved through your bladder to your kidney. It will send pictures to a screen in the operating room. This will show what parts of your kidney need to be treated. A tube will be put through the ureteroscope. It will be moved into your kidney. The laser device will be put into your kidney through the tube. The laser will be used to break up the kidney stones. A tool with a tiny wire basket may be put through the tube into your kidney. This can help remove the small pieces of the kidney stone. A small mesh tube (stent) may be placed to allow your kidney to drain. The tube and ureteroscope will be taken out at the end of the surgery. The procedure may vary among providers and hospitals. What happens after the procedure? Your blood pressure, heart rate, breathing rate, and blood oxygen level will be monitored until you leave the hospital or clinic. If you had a stent placed, it may have a string that will be secured to your skin. This helps your provider remove the stent. You may be given a strainer to collect any stone pieces that you pass in your pee. Your provider may have these tested. This information is not intended to replace advice given to you by your health care provider. Make sure you discuss any questions you have with your health care provider. Document Revised: 01/24/2023 Document Reviewed: 01/24/2023 [employer] Patient Education 2023 [employer]. 06/21/2024 09:52:30 Kidney Stones, [id number] Kidney Stones Kidney stones are rock-like masses that form inside of the kidneys. Kidneys are organs that make pee (urine). A kidney stone may move into other parts of the urinary tract, including: The tubes that connect the kidneys to the bladder (ureters). The bladder. The tube that carries urine out of the body (urethra). Kidney stones can cause very bad pain and can block the flow of pee. The stone usually leaves your body through your pee. A doctor may need to take out the stone. What are the causes? Kidney stones may be caused by: Too much calcium in the body. This may be caused by too much parathyroid hormone in the blood. Uric acid crystals in the bladder. The body makes uric acid when you eat certain foods. Narrowing of one or both of the ureters. A kidney blockage that you were born with. Past surgery on the kidney or the ureters. What increases the risk? You are more likely to develop this condition if: You have had a kidney stone in the past. Other people in your family have had kidney stones. You do not drink enough water. You eat a diet that is high in protein, salt (sodium), or sugar. You are very overweight (obese). What are the signs or symptoms? Symptoms of a kidney stone may include: Pain in the side of the belly, right below the ribs. Pain usually spreads to the groin. Needing to pee often or right away. Pain when peeing. Blood in your pee. Feeling like you may vomit (nauseous). Vomiting. Fever and chills. How is this treated? Treatment depends on the size, location, and makeup of the kidney stones. The stones will often pass out of the body when you pee. You may need to: Drink more fluid to help pass the stone. ?In some cases, you may be given fluids through an IV tube at the hospital. Take medicine for pain. Change your diet to help keep kidney stones from coming back. Sometimes, you may need: A procedure to break up kidney stones using a beam of light (laser) or shock waves. Surgery to remove the kidney stones. Follow these instructions at home: Medicines Take gaws-bvf-aljnnfz and prescription medicines only as told by your doctor. Ask your doctor if the medicine prescribed to you requires you to avoid driving or using machinery. Eating and drinking Drink enough fluid to keep your pee pale yellow. ?You may be told to drink at least 8 10 glasses of water each day. This will help you pass the stone. If told by your doctor, change your diet. You may be told to: ?Limit how much salt you eat. ?Eat more fruits and vegetables. ?Limit how much meat, poultry, fish, and eggs you eat. Follow instructions from your doctor about what you may eat and drink. General instructions Collect pee samples as told by your doctor. You may need to collect a pee sample: ?24 hours after a stone comes out. ?8 12 weeks after a stone comes out, and every 6 12 months after that. Strain your pee every time you pee. Use the strainer that your doctor recommends. Do not throw out the stone. Keep it so that it can be tested by your doctor. Keep all follow-up visits. You may need X-rays and ultrasounds to make sure the stone has come out. How is this prevented? To prevent another kidney stone: Drink enough fluid to keep your pee pale yellow. This is the best way to prevent kidney stones. Eat healthy foods. Avoid certain foods as told by your doctor. You may be told to eat less protein. Stay at a healthy weight. Where to find more information National Kidney Foundation (NKF): kidney.org [employer] (UCF): urologyhealth.org Contact a doctor if: You have pain that gets worse or does not get better with medicine. Get help right away if: You have a fever or chills. You get very bad pain. You get new pain in your belly. You faint. You cannot pee. This information is not intended to replace advice given to you by your health care provider. Make sure you discuss any questions you have with your health care provider. Document Revised: 01/17/2023 Document Reviewed: 01/17/2023 [employer] Patient Education 2023 [employer]. Follow Up Care 06/15/2024 13:01:12 With:MARTINE BYRNES, Joe Harman, URL Address: [facility] [address] , [place] [phone] When: Unknown [facility] Clinical Note 06-21-2024 Note Date & Type Note Facility 06-21-2024 Note Patient Education Nephrology Laser Therapy for Kidney Stones Laser therapy for kidney stones is a procedure to break up rock-like masses that form inside the kidneys (kidney stones). It is done using a device that beams a strong light (laser) on the kidney stones. This breaks the stones up into small pieces. These small pieces may leave your body when you pee (urinate) or may be taken out during the procedure. You may need laser therapy if you have kidney stones that are painful or that are stopping you from being able to pee. Tell a health care provider about: ??? Any allergies you have. ??? All medicines you are taking, including vitamins, herbs, eye drops, creams, and hvfq-yjb-lxopeqi medicines. ??? Any problems you or family members have had with anesthesia. ??? Any bleeding problems you have. ??? Any surgeries you have had. ??? Any medical conditions you have. ??? Whether you are or may be . What are the risks? Your health care provider will talk with you about risks. These may include: ??? Infection. ??? Bleeding. ??? Allergic reactions to medicines. ??? Damage to: ? The part of your body that drains pee (urine) from the bladder (urethra). ? The bladder. ? The tube that connects the bladder to the kidneys (ureter). ??? Urinary tract infection (UTI). ??? Urethral stricture. This is when the urethra is narrowed by scarring. ??? Trouble peeing. ??? Blockage of the kidney. This may be caused by a piece of kidney stone. What happens before the procedure? When to stop eating and drinking Follow instructions from your provider about what you may eat and drink. These may include: ??? 8 hours before the procedure ? Stop eating most foods. Do not eat meat, fried foods, or fatty foods. ? Eat only light foods, such as toast or crackers. ? All liquids are okay except energy drinks and alcohol. ??? 6 hours before the procedure ? Stop eating. ? Drink only clear liquids, such as water, clear fruit juice, black coffee, plain tea, and sports drinks. ? Do not drink energy drinks or alcohol. ??? 2 hours before the procedure ? Stop drinking all liquids. ? You may be allowed to take medicines with small sips of water. ??? If you do not follow your provider's instructions, your procedure may be delayed or canceled. Medicines ??? Ask your provider about: ? Changing or stopping your regular medicines. These include any diabetes medicines or blood thinners you take. ? Taking medicines such as aspirin and ibuprofen. These medicines can thin your blood. Do not take them unless your provider tells you to. ? Taking nffz-xtd-wopufbe medicines, vitamins, herbs, and supplements. Tests ??? You may have a physical exam before the procedure. You may also have tests done. These may include: ? Imaging tests. ? Blood or pee tests. Surgery safety ??? Ask your provider: ? How your surgery site will be marked. ? What steps will be taken to help prevent infection. These steps may include: ? Removing hair at the surgery site. ? Washing skin with a soap that kills germs. ? Taking antibiotics. General instructions ??? Do not use any products that contain nicotine or tobacco for at least 4 weeks before the procedure. These products include cigarettes, chewing tobacco, and vaping devices, such as e-cigarettes. If you need help quitting, ask your provider. ??? If you will be going home right after the procedure, plan to have a responsible adult: ? Take you home from the hospital or clinic. You will not be allowed to drive. ? Care for you for the time you are told. What happens during the procedure? An IV will be inserted into one of your veins. ??? You will be given: ? A sedative. This helps you relax. ? Anesthesia. This keeps you from feeling pain. It will make you fall asleep for surgery. ??? A tool with a camera on the end (ureteroscope) will be put into your urethra. It will be moved through your bladder to your kidney. It will send pictures to a screen in the operating room. This will show what parts of your kidney need to be treated. ??? A tube will be put through the ureteroscope. It will be moved into your kidney. ??? The laser device will be put into your kidney through the tube. The laser will be used to break up the kidney stones. ??? A tool with a tiny wire basket may be put through the tube into your kidney. This can help remove the small pieces of the kidney stone. ??? A small mesh tube (stent) may be placed to allow your kidney to drain. ??? The tube and ureteroscope will be taken out at the end of the surgery. The procedure may vary among providers and hospitals. What happens after the procedure? Your blood pressure, heart rate, breathing rate, and blood oxygen level will be monitored until you leave the hospital or clinic. ??? If you had a stent placed, it may have a string that will be secured to your skin. This helps yo (more content not included)... [facility] Radiology Diagnostic study note 06-14-2024 Note Date & Type Note Facility 06-14-2024 Radiology Diagnostic study note [facility] [place] [address] [place] [address] CT Scan Report Signed Patient: Fausto Laureano MR#: [id number] : 1980 Acct:[id number] Age/Sex: 43 / M ADM Date: 5 Loc: ER Room: Type: PRE ER Attending Dr: Copies to: Umu Sethi APRN~ Ordering Provider: Umu Sethi APRN Date of Service: 06/14/24 CT/CT abdomen pelvis wo con: flank pain/hematuria CT ABDOMEN AND PELVIS WITHOUT INTRAVENOUS CONTRAST: CLINICAL HISTORY: Left low back pain with hematuria COMPARISON: None TECHNIQUE: Spiral images were obtained through the abdomen and pelvis without intravenous contrast. This CT exam was performed using one or more following dose reduction techniques: Automated exposure control, adjustment of the mA and/or kV according to patient size, or use of iterative reconstruction technique. FINDINGS: Lung Bases: [Mild bibasilar atelectasis.] Organs:Suboptimal evaluation due to lack of IV contrast. Liver gallbladder spleen pancreas and adrenal glands appear unremarkable. Kidneys demonstrate a 4mm obstructing calculus left UPJ. Aorta appears normal in caliber.[ GI: Stomach is grossly unremarkable. Small bowel appears nondilated. Appendix is normal. No acute colonic abnormality is seen.[ Pelvis:[Urinary bladder and prostate gland appear unremarkable.] Peritoneum/Retroperitoneum:No free air or free fluid or lymphadenopathy.[ Abd wall/Bones:Abdominal wall demonstrates no acute findings. Osseous structures demonstrate degenerative change.[ CT/CT abdomen pelvis wo con IMPRESSION: 4 mm obstructing calculus left UPJ. Impression dictated by: Ryan Gross Jr., D.OWillis06/14/2024 3:18 PM Dictation Location: [facility]-18 Transcribed By: [facility] 06/14/241517 Dictated By: Ryan Gross Jr, DO 06/14/241514 Signed By: 06/14/24 1518 [facility] Evaluation note 06-14-2024 Note Date & Type Note Facility 06-14-2024 Evaluation note Diagnosis Onset Date Resolution Hematuria noneactive June 14 1:04pm [facility] Work Phone: Evaluation note 05-20-2022 Note Date & Type Note Facility 05-20-2022 Evaluation note Encounter Date Diagnosis Assessment Notes May, Acute non-recurrent pansinusitis (ICD-10 - J01.40) Sinus infections can be triggeredby a secondary infection; usually a viral URI or even seasonal allergies. Take medications as directed. Use saline nasal spray prior to presciption nasal spray. Complete all doses of medication even if you start to feel better. Symptoms should improve during treatment period. Follow up with primary care provider if no improvement of symptoms occur by end of treatment. [employer] Other Evaluation + Plan note Note Date & Type Note Facility Evaluation + Plan note No data available for this section [facility] Evaluation note Note Date & Type Note Facility Evaluation note Diagnosis Onset Date Resolution Hematuria noneactive June 14 1:04pm [facility] Work Phone: History general Narrative - Reported Note Date & Type Note Facility History general Narrative - Reported Type Medical History Asthma FreeAgent [facility] Other Hospital Discharge instructions Note Date & Type Note Facility Hospital Discharge instructions Additional Instructions Strain all urine Zofran for nausea vomiting Flomax daily Your next dose is due tomorrow Tylenol Motrin for minor pain [place] for severe pain You cannot work or drive when taking [place] Follow-up with urology call tomorrow for your follow-up appointment Return here if he develops any increased pain, vomiting unable to be controlled, fevers, chills or any other concern [facility] Work Phone: Progress note Note Date & Type Note Facility Progress note No data available for this section [facility] [place] Chief Complaint and Reason for Visit Chief Complaint Admit Date back pain June 14, 2024 1: 04pm lt side back pain June 14, 2024 2: 06pm Reason for Visit Admit Date Hematuria June 14, 2024 1: 04pm Chief Complaint Admit Date back pain June 14, 2024 1: 04pm Chief Complaint Admit Date back pain June 14, 2024 1: 04pm lt side back pain June 14, 2024 2: 06pm [email or web address] June 19, 2024 7 :28am Advance Directives No Advanced Directives Records Found Advance Directive Response Recorded Date/ Time Advance Directives No June 14, 2024 1:01pm Summary Purpose Family History No Family History Records Found Additional Source Comments REASON FOR VISIT (unrecogniz ed section and content) cough Care Teams (unrecognized sec tion and content) Team Status: Active Member Role Status Dates PHYSICIAN NO FAMILY Primary Care Provider Active Team Status: Inactive Member Role Status Dates PHYSICIAN NO FAMILY Primary Care Provider Active Start: June 14, 2024 End: June 14, 2024 Lien Brar APRN Attending Provider Active Sta rt: June 14, 2024 End: June 14, 2024 Team Status: Inactive Member Role Status Dates PHYSICIAN NO FAMILY Primary Care Provider Active Start: June 14, 2024 End: June 14, 2024 Umu Sethi APRN Emergency Provider Active Start: June 14, 2024 End: June 14, 2024 Team Status: Inactive Member Role Status Dates PHYSICIAN NO FAMILY Primary Care Provider Active Start: June 19, 2024 End: June 19, 2024 Joe Jordan MD Attending Provider Active St art: June 19, 2024 End: June 19, 2024 Goals (unrecognized section and content) Goals may be documented in a n alternate section (unrecognized sect ion and content) No Status Records FoundNo Status Records Found INFORMATION SOURCE (unrecogn ized section and content) DATE CREATED AUTHOR 06/24/2024 [facility] DATE CREATED AUTHOR 'S ORGANIZ ATION 06/26/2024 [facility] FOR RECORDS PERTAINING TO PATIENTS WHO ARE OR HAVE BEEN ENROLLED IN A CHEMICAL DEPENDENCY/SUBSTANCEABUSE PROGRAM, SOME INFORMATION MAY BE OMITTED. This clinical summary was aggregated from multiple sources. Caution should be exercised in using it in the provision of clinical care. This summary normalizes information from multiple sources, and as a consequence, information in this document may materially change the coding, format and clinical context of patient data. In addition, data may be omitted in some cases. CLINICAL DECISIONS SHOULD BE BASED ON THE PRIMARY CLINICAL RECORDS. [facility]. provides no warranty or guarantee of the accuracy or completeness of information in this document.
--- NOTE | 2024-07-15 07:29 | XR_ITS ---
The [address] [address] Patient Name: FAUSTO PARTIDA MRN: [id number] date: 1980 Sex: M Assigned Patient Location: [facility] Current Patient Location: Accession/Order Number: [id number] Exam Date: 07/15/2024 07:23 Report Date: 07/16/2024 13:45 At the request of: BALDO FARLEY Procedure: XR abdomen 1V EXAMINATION: XR abdomen 1V HISTORY: kidney stones COMPARISON: No relevant comparison available. FINDINGS: KIDNEY/URETER - RIGHT: No visible renal or ureteral calcifications. KIDNEY/URETER - LEFT: 7 mm calcification projects over the left renal pelvis PELVIS: No visible ureteral calcifications. Any visible calcifications favor phleboliths. BOWEL: No abnormal dilation or deviation. BONES: No acute abnormality. OTHER: Negative. No abnormal gaseous collections. XR/XR abdomen 1V IMPRESSION: Suspected 7 mm left nephrolith Electronically authenticated by: MARC CHÁVEZ Date: 07/16/2024 13:45
[2024-07-15] MEDS: LACTATED RINGER'S SOLUTION 1,000 ML 50 ML IV (07:59)
[2024-07-15] MEDS: CEFAZOLIN SODIUM 2 GM/50 ML D5W PREMIX IV (09:48)
--- NOTE | 2024-07-15 10:34 | PM.URSON ---
Urology Surgery Operative Note Operative Note Procedure Date: 07/15/24 Time Out Performed: yes Pre-op Diagnosis: Left renal calculus Post-op Diagnosis: same as pre-op Procedures performed: 1. Left ESWL. Anesthesia: General-LMA Primary Surgeon: Joe Jordan Complications: None Estimated blood loss (mL): 0 Findings: Left renal calculus Specimens: None Drains: None Indications for Procedures: This gentleman has a 4 to 5 mm left renal calculus that seems to be ball valving his UPJ. He now presents for left ESWL. He has signed an informed consent for this procedure after risks were explained. Some of these risks include bleeding, perinephric hematoma, infection and anesthesia to name a few Detailed description of Procedure: The patient was brought to the Operating Room and placed on Siemens electromagnetic lithotripsy treatment table in the supine position. SCDs were placed on their lower extremities and turned on and functioning during the entire case. Timeout was done by all parties in the room. We all agreed upon the patient's identification and the planned procedures for this patient. General Anesthesia was then administered via LMA. Treatment head was then brought to the patient's correct side. While using flourscopy the stone was identified and lined up into the crosshairs. It was now located within the left mid kidney. We then began applying shocks to the left renal stone. We started at power level 2.0 and increased to a maximum power level of 3.5. Intermittent fluoroscopy revealed that there was a fairly early fragmentation. We gave a total of 3000 shocks to the stone. We had continued fragmentation during the entire procedure. Pieces seemed to conform to a calyx and thus suggesting that the stone did fragment. After 3000 shocks we then terminated the procedure. He was then transferred to a [facility] bed and wheeled to PACU in stable condition.
--- NOTE | 2024-07-15 10:54 | PC.NURSE ---
No brising noted left flank
== END 2024-07-15 11:55 | disposition home or self-care (01) ==
PROVIDERS: Visit Provider Urology
PROC: (CPT 873; principal; 2024-07-15 09:00)
DX: N20.0 Calculus of kidney (principal); J45.909 Unspecified asthma, uncomplicated; R31.9 Hematuria, unspecified; G47.33 Obstructive sleep apnea (adult) (pediatric)
CPT/HCPCS: 50590; 36415; 74018; J0690; J1100; J1885; J2250; J2405; J2704; J3010